=== PATIENT | male | born 1945 | race Caucasian/White ===

== ENCOUNTER 2025-03-22 05:50 | Day surgery (SDC) | payer MEDICARE ==
[2025-03-20 09:58] LABS: IMMATURE GRANULOCYTE ABSOLUTE 0.01 K/uL (0-1); NUCLEATED RED BLOOD CELLS 0.0 % (0.0-0.19); PLATELET COUNT (AUTO) 117 K/uL (130-400); RED BLOOD CELL COUNT(AUTO) 4.05 MIL/uL (4.50-6.20); RED CELL DISTRIBUTION WIDTH 12.9 % (11.0-15.5); WHITE BLOOD COUNT (AUTO) 4.8 K/uL (4.8-10.8)
[2025-03-20 10:02] VITALS: BP 148/68; PULSE 55; RESP 17; TEMP 97.2
[2025-03-20 10:03] LABS: APPEARANCE,URINE CLEAR (CLEAR); GLUCOSE, URINE (UA) NEGATIVE (NEGATIVE); LEUKOCYTE ESTERASE ,URINE NEGATIVE Leu/uL (NEGATIVE); NITRATE,URINE NEGATIVE (NEGATIVE); OCCULT BLOOD,URINE NEGATIVE (NEGATIVE)
[2025-03-20 10:08] LABS: ADD UA MICROSCOPIC YES
[2025-03-20 10:12] LABS: CREATININE 1.2 mg/dL (0.5-1.3); GLOMERULAR FILTR. RATE CALC 62.0 mL/min (>90); GLUCOSE,RANDOM 87.0 mg/dL (70-105); INR 1.14 (0.85-1.15); SODIUM SERUM 143.0 mmol/L (136-145); UREA NITROGEN, BLOOD 36.0 mg/dL (7-18)
--- NOTE | 2025-03-20 14:36 | EKG ---
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
--- NOTE | 2025-03-20 15:07 | HMCIMG ---
EXAM: CR Chest, 1 View. CLINICAL HISTORY: PREOP COMPARISON: None provided. FINDINGS: LUNGS: The lungs show no infiltrate or other acute finding. Presumed calcified granuloma at the left lung base. PLEURAL SPACES: No pleural effusion or pneumothorax. MEDIASTINUM: Cardiac size and mediastinal contours within normal limits. BONES: No acute osseous abnormality. IMPRESSION: No acute cardiopulmonary pathology is evident. /Brickeys
--- NOTE | 2025-03-21 10:09 | NUR ---
report reported ua to oscar anthony np. ok to proceed
[~2025-03-22] VITALS: Ht 177.8 cm; Wt 85.5 kg
[2025-03-22] VITALS (10 sets, daily range): BP systolic 95–129; BP diastolic 49–68; PULSE 49–58; RESP 12–15; TEMP 97.2–97.5
[~2025-03-22 05:50] MED LIST: ASPI-1197 PO; CYAN1TAB44 PO; EZET10TA48 PO; OMEP20TA20 PO; PROP80TA4 PO; ROSU10TA72 PO; TOPI-258 PO; UBID200C18 PO
[2025-03-22] MEDS ORDERED: LIDOCAINE HCL 400MG/20ML VIAL ONE (07:03)
[2025-03-22] MEDS ORDERED: IOHEXOL 350 MG/ML 100ML INFUS..BTL IV ONE (07:03)
[2025-03-22] MEDS ORDERED: NITROGLYCERIN 50MG VIAL ONE (07:04)
[2025-03-22] MEDS ORDERED: HEParin-NS 1,000 UNIT/500 ML 1,000 ML IV ONE (07:04)
[2025-03-22] MEDS ORDERED: SODIUM BICARB 50MEQ 50ML VIAL 50 ML ONE (07:09)
[2025-03-22] MEDS ORDERED: IOHEXOL-350 50ML VIAL IV ONE (07:23)
[2025-03-22] MEDS ORDERED: MIDAZOLAM HCL 1 MG/ML 2ML VIAL ONE ×3 (07:32→07:49)
[2025-03-22] MEDS ORDERED: 0.9%NACL 1000ML 1,000 ML IV SCH (08:30)
--- NOTE | 2025-03-22 08:38 | CCATH ---
PROCEDURE NOTE PROCEDURES: * Left heart catheterization. * Selective diagnostic right and left coronary arteriogram. * Conscious sedation for 30 minutes. INDICATIONS: * Abnormal Lexiscan Cardiolite. * Abnormal coronary CT angiogram. * Hyperlipoproteinemia. * Strong family history of coronary artery disease. COMPLICATIONS: None. TOTAL CONTRAST: 35 mL. APPROACH: Right radial approach. DESCRIPTION OF PROCEDURE: Conscious sedation was administered for 30 minutes. The patient was taken to the cardiac catheterization lab after appropriate operative consent was signed. He was prepped and draped in the usual fashion. After conscious sedation was administered, the right radial artery region was infiltrated with 2% Xylocaine without epinephrine. A 6-Chadian radial slender was advanced in retrograde fashion with a modified Seldinger technique over an indwelling wire. At this point, a TIG-4 catheter was advanced and positioned in the left ventricular cavity. Left ventricular end-diastolic pressure measurement was obtained. The patient's pullback revealed no evidence of aortic stenosis. Ventriculography was deferred. The patient's EF was 50-55%. The patient's mediastinum appeared to be somewhat widened. He did have findings of a dilated aortic root on CT angiography. The catheter was then engaged in the left main coronary artery. This was imaged in multiplane. The left main was a moderately large vessel that was noted to have some calcification in the distal tapering of approximately 20%. It bifurcated an LAD and a circumflex. The LAD was a moderately sized vessel that had minor luminal irregularities. It gave rise to several diagonals and septal perforators with no significant stenotic lesions. The circumflex was a codominant vessel that gave rise to several marginal branches and a left PLVB. The first obtuse marginal was a very high obtuse marginal almost in the intermediate territory, which was a small to moderately sized vessel that had a 70% tubular stenotic lesion. The rest of the circ system was free of disease. The RCA was a moderately sized vessel that was codominant and gave rise to a PDA. The right coronary had minimal luminal irregularities with no significant stenotic lesions. At this point, the procedure was completed, the catheter was withdrawn over an indwelling wire. The radial band was applied with good hemostasis. The patient tolerated the procedure well and left the cardiac catheterization lab in stable condition. FINAL IMPRESSION: * Branch coronary artery disease. * No aortic stenosis. 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 PLAN: Medical management. TID: [id number] RECEIPT: [id number]
--- NOTE | 2025-03-22 09:57 | NUR ---
I WAS TAKING OUT THE LAST OF THE 2 MLS FROM VASBAND NOTED BLOOD OOZING. I REINFLATED 3ML TO [facility]. NO HEMATOMA NOTED NO OOZING NOTED. I DID EXPLAIN THIS TO PT AND . WILL REASSES
--- NOTE | 2025-03-22 10:20 | NUR ---
[facility] REMOVED RIGHT RADIAL SITE ASYMPTOMATIC. STERILE 2X2 AND TEGADERM APPLIED TO RIGHT RADIAL.
--- NOTE | 2025-03-22 12:14 | NUR ---
BOTH PT AND GIVEN VERBAL AND WRITTEN DISCHARGE INSTRUCTIONS. IV REMOVED SITE ASYMPTOMATIC. PT TAKEN OUT VIA WHEELCHAIR
== END 2025-03-22 12:18 | disposition home or self-care (01) ==
LOC: DAH 05:50
PROVIDERS: ATTEND Internal Medicine Cardiovascular Disease
DX: R94.39 Abnormal result of other cardiovascular function study (principal); I25.10 Atherosclerotic heart disease of native coronary artery without angina pectoris; E78.00 Pure hypercholesterolemia, unspecified; I25.84 Coronary atherosclerosis due to calcified coronary lesion; K21.9 Gastro-esophageal reflux disease without esophagitis; Z96.652 Presence of left artificial knee joint; Z98.890 Other specified postprocedural states; Z79.01 Long term (current) use of anticoagulants; Z79.899 Other long term (current) drug therapy
CPT/HCPCS: 80048; 83880; 85025; 85610; 85730; 81001; 36415; 71045; 93005; 93458; 99156; 99157; C1769; C1894 ×2; A4649; J3010; J3490 ×4; J1644 ×2; J2250 ×3; Q9967; A4215; A4222; A4221; A4663; A4216; A4606; Q9965; A4223 ×3